=== PATIENT | male | born 1960 ===

== ENCOUNTER → 2018-07-15 19:35 | Outpatient (REF) | payer OTHER, SELFPAY ==
[2018-07-15 20:02] LABS: Cholesterol 150 mg/dL (140-199); HDL Cholesterol 46 mg/dL (40-60); LDL Cholesterol Calculated 71 mg/dL (<100); Triglycerides 167 mg/dL (35-150)
[2018-07-15 20:34] LABS: Thyroid Stimulating Hormone 0.56 uIU/mL (0.47-4.68)
== END ==
LOC: LAB 19:35
PROVIDERS: Visit Provider Family Medicine
DX: E03.9 Hypothyroidism, unspecified (principal); E78.5 Hyperlipidemia, unspecified
CPT/HCPCS: 36415; 80061; 84439; 84443; 84481